=== PATIENT | female | born 1950 | race Caucasian/White ===

== ENCOUNTER 2016-12-07 14:20 | Inpatient (IN) | payer MEDICARE ==
[~2016-12-07] VITALS: Ht 165.1 cm; Wt 57.4 kg
[2016-12-08] MEDS ORDERED: FOLI1CAP7 PO (08:42)
[2016-12-08] MEDS ORDERED: TUMS500C CHEW (08:42)
[2016-12-08] MEDS ORDERED: METH2.5T PO (08:42)
[2016-12-08] MEDS ORDERED: CALCCHW9 CHEW (08:42)
[2016-12-08] MEDS ORDERED: ENAL10TA PO (08:42)
[2016-12-08] MEDS ORDERED: TIZA4CAP3 PO (08:42)
[2016-12-08] MEDS ORDERED: MULT-135 PO (08:42)
[2016-12-08] MEDS ORDERED: CALCTAB80 PO (08:42)
[2016-12-08] MEDS ORDERED: PLAQ200T PO (08:42)
[2016-12-26] MEDS ORDERED: GENTAMICIN SULFATE 80 MG/2 ML VIAL ONE (10:05)
[2016-12-26] MEDS ORDERED: ACET-703 PO (10:13)
[2016-12-26] MEDS ORDERED: FERR1TAB58 PO (10:14)
[2016-12-26] MEDS ORDERED: VANCOMYCIN HCL 1000 MG VIAL ONE (10:15)
[2016-12-26] MEDS ORDERED: LACTATED RINGER'S 1000 ML IV PRN (10:15)
[2016-12-26] MEDS ORDERED: CHLORHEXIDINE GLUCONATE 2 % 1 PACK (2 CLOTHS) TOPICAL PRN (10:15)
[2016-12-26] MEDS ORDERED: POVIDONE IODINE 5% (ANTISEPSIS KIT) 4 APPLICATIONS EACH NARE PRN (10:15)
[2016-12-26] MEDS ORDERED: METOPROLOL TARTRATE 25 MG TAB PO PRN (10:15)
[2016-12-26] MEDS ORDERED: INSULIN HUMAN REGULAR 1,000 UNITS/10 ML VIAL SQ PRN (10:15)
[2016-12-26] MEDS ORDERED: SODIUM CHLOR 0.9% 250 ML INJ 250 ML ONE (10:15)
[2016-12-26] MEDS ORDERED: SODIUM CHLORID 0.9% 500 ML IV PRN (10:15)
[2016-12-26 10:19] VITALS: BP 134/70; PULSE 72; RESP 20; TEMP 98.1; O2SAT 98
[2016-12-26] MEDS ORDERED: BUPIVACAINE LIPOSOME PF 1.3% 20 ML VIAL ONE (10:22)
[2016-12-26] MEDS ORDERED: TRANEXAMIC ACID IV SCH (10:30)
[2016-12-26] MEDS ORDERED: EXPAREL PERI-ARTICULAR INJECTION (TOTAL VOL. 60 ML) P-ARTICULR SCH ×2 (10:30)
[2016-12-26] MEDS ORDERED: SODIUM CHLORIDE 0.9% IV SCH (10:30)
[2016-12-26] MEDS ORDERED: VANCOMYCIN 1000 MG/NS 250 ML (for <70 kg) IV SCH ×2 (10:30)
[2016-12-26] MEDS ORDERED: ceFAZolin 2 GM PREMIX 50 ML IV SCH (10:30)
[2016-12-26] MEDS ORDERED: POVIDONE IODINE 7.5% SCRUB 118 ML BOTTLE TOPICAL SCH (10:30)
[2016-12-26] MEDS ORDERED: ePHEDrine/NS 25 MG/5 ML SYR IV ONE (12:00)
[2016-12-26] MEDS ORDERED: ONDANSETRON HCL 4 MG/2 ML VIAL IV PUSH ONE (12:00)
[2016-12-26] MEDS ORDERED: LACTATED RINGER'S 1000 ML INJ 1,000 ML IV ONE (12:00)
[2016-12-26] MEDS ORDERED: PHENYLEPH/NS 1000 MCG/10 ML SYR IV ONE (12:00)
[2016-12-26] MEDS ORDERED: PROPOFOL 200 MG/20 ML AMP IV ONE (12:00)
[2016-12-26] MEDS ORDERED: fentaNYL CITRATE 250 MCG/5 ML AMP ONE (12:33)
[2016-12-26] MEDS ORDERED: ACETAMINOPHEN 1000 MG/100 ML VIAL IV ONE (12:33)
[2016-12-26] MEDS ORDERED: HYDROmorphone HCL PF 2 MG/ML VIAL ONE (12:34)
[2016-12-26] MEDS ORDERED: SUGAMMADEX SODIUM 200 MG/2 ML VIAL IV PUSH ONE ×2 (12:34)
[2016-12-26] MEDS ORDERED: FAMOTIDINE 20 MG/2 ML VIAL ONE (12:35)
--- NOTE | 2016-12-26 14:43 | PD.OP ---
cc: Derrick Berger MD Operative Report Date of Surgery: December 26, 2016 Preoperative Diagnosis: Osteoarthritis right knee, severe Postoperative Diagnosis: Same Procedure: Right total knee replacement arthroplasty Anesthesia: Gen. Surgeon: Derrick Berger Inventory Specialist(s): DANIELLE Erwin Operation and Findings: EBL: 100 cc INDICATION: This patient presents with long-standing arthritis of the knee. Attachment record documents conservative measures. The patient now presents for surgical treatment. NOTE: Olga Erwin PA-C was present for the entire surgical procedure as my painter assistant. In my medical opinion her skill and care was necessary for proper management of this patient. TOURNIQUET TIME: 48 minutes COMPANY: [employer] FEMUR: Size 2.5, posterior stabilized TIBIA: Size 3.5, fixed bearing PATELLA: 35 mm POLYETHYLENE INSERT: 9 mm PROCEDURE: This patient was brought the operating room and anesthetized in the supine position. The patient was positioned supine on the table. The tourniquet was placed about the thigh, and the leg was scrubbed with alcohol followed by Hibiclens followed by ChloraPrep and draped sterilely. A timeout was done, and antibiotics were given. After exsanguination the tourniquet was inflated to 250 mmHg. An anterior incision was made and a median parapatellar arthrotomy was performed. The patella was released laterally and subluxed allowing freehand cut of the patella which was then sized. A metal cap was placed over the exposed patellar surface for protection. A airplane pilot crop dusting hole was placed in the distal femur allowing a 6 valgus cut removing 10 mm from the distal femur. Anterior posterior and chamfer cuts were made. The posterior stabilize osteotomy was made. The attention was directed to the tibia. Retractors were positioned. The external alignment guide was used allowing the lateral tibia to be used as referencing guide and cut utilizing an oscillating saw taking care to avoid any injury to the surrounding soft tissues. This was sized properly. Trial reduction showed that the insert fit nicely. The patient had range of motion extension 0 flexion 125. A medial release was not necessary. The bony surfaces prepared. On the back table 2 packets of methylmethacrylate were mixed. The components were cemented. Excess cement was removed. The tourniquet let down and hemostasis was controlled. The final plastic insert was inserted. Range of motion was the same as previously noted. A drain was brought through a separate stab incision. The arthrotomy was repaired with interrupted #1 Vicryl suture, subcutaneous tissue 2-0 Vicryl suture and skin with metallic buddy A sterile dressing was applied. Sponge counts, needle counts and instrument counts were all correct. The patient tolerated procedure well and was taken to recovery in satisfactory condition. FINDINGS: This patient had severe arthritis with periarticular osteophytes. The patient also had a moderate synovitis. A synovectomy was accomplished as a part of the procedure. The final solution was excellent. We intentionally downsize from a 3 to a 2.5 femur allowing better flexion because the patient's concern of postoperative limited flexion of a total knee on the left, done elsewhere. Derrick Berger MD December 26, 2016 14:43
[2016-12-26] MEDS ORDERED: OXYC1TAB63 PO (14:44)
[2016-12-26] MEDS ORDERED: XARE10TA PO (14:44)
[2016-12-26] MEDS ORDERED: MORPHINE SULFATE 8 MG/ML INJ IM PRN (14:45)
[2016-12-26] MEDS ORDERED: Post-op Orders (for Pharmacy) MISC XX ONE (14:45)
[2016-12-26] MEDS ORDERED: MORPHINE SULFATE 30 MG/30 ML PCA IV SCH (14:45)
[2016-12-26] MEDS ORDERED: HYDROmorphone HCL PCA 6 MG/30 ML IV SCH (14:45)
[2016-12-26] MEDS ORDERED: NALOXONE HCL 0.4 MG/ML AMP IV PRN ×2 (14:45)
[2016-12-26] MEDS ORDERED: MISCELLANEOUS NURSING INFORMATION XX PRN (14:45)
[2016-12-26] MEDS ORDERED: MISCELLANEOUS PHARMACY INFORMATION XX ONE (14:45)
[2016-12-26] MEDS ORDERED: TEMAZEPAM 15 MG CAP PO PRN (14:45)
[2016-12-26] MEDS ORDERED: oxyCODONE/ACETAMINOPHEN 5 MG/325 MG TAB PO PRN ×2 (14:45)
[2016-12-26] MEDS ORDERED: SODIUM CHLORIDE 0.9% FLUSH 5 ML FLUSH IVF PRN (14:45)
[2016-12-26] MEDS ORDERED: DO NOT ADM ANY ANTICOAGULANT DRUGS PRN (15:12)
[2016-12-26] MEDS ORDERED: MIDAZOLAM HCL 2 MG/2 ML VIAL ONE (15:12)
[2016-12-26] MEDS: LACTATED RINGER'S 1000 ML INJ 1,000 ML IV SCH (15:50)
--- NOTE | 2016-12-26 16:45 | RADRPT ---
EXAM DATE/TIME: 12/26/2016 15:30 [facility] COMPARISON: No previous studies available for comparison. INDICATIONS : Post op right knee surgery. MEDICAL HISTORY : Unobtainable. SURGICAL HISTORY : Unobtainable. ENCOUNTER: Initial ACUITY: 1 day PAIN SCORE: Non-responsive. LOCATION: Right knee. FINDINGS: 2 views right knee. Postoperative images of total knee prosthesis. Alignment within normal limits. No evidence of fracture. CONCLUSION: Grossly unremarkable postoperative knee radiographs. Kings Ortiz MD on December 26, 2016 at 16:43 Board Certified Radiologist. This report was verified electronically.
[2016-12-26] MEDS ORDERED: CPMMACHINE (18:01)
--- NOTE | 2016-12-26 18:04 | HHI.FF ---
Face to Face Verification Diagnosis: (1) Right knee pain (2) Osteoarthritis of right knee Physical Therapy Gait training, Safety evaluation Knee: Total knee, Protocol: Right, Full weight bearing Canvas Knee Splint: When in bed & 2 pillows btw thighs Right LE Weight Bearing: WB as tolerated Additional Instructions PT 4-5 days/wk. WBAT RLE, TKA protocol. Walker as needed. CPM twice daily as tolerated 0-70 w goal of 100 flexion Nursing RN Days per Week: 2 x Week(s): 1 Dressing Changes: Do not change dressing Additional Instructions Vitals assessment, dressing assessment. Do not change unless saturated I have seen patient Carmen Henderson on 12/26/16. My clinical findings support the need for the requested home health care services because: Limited ability to care for self High risk of falls I certify that my clinical findings support that this patient is homebound because: Post-op weakness Unsteady gait/balance [facility] December 26, 2016 18:04
[2016-12-26] MEDS: MAGNESIUM HYDROXIDE SUSP 30 ML CUP PO SCH (20:42)
[2016-12-26] MEDS: SODIUM CHLORIDE 0.9% FLUSH 5 ML FLUSH IVF SCH (20:42)
[2016-12-26] MEDS: PCA - TOTAL MG DILAUDID DELIVERED PER SHIFT OTHER SCH (20:42)
[2016-12-26] MEDS: SENNOSIDES 8.6 MG TAB PO SCH (20:42)
[2016-12-26 21:47] VITALS: BP 102/65; PULSE 84; RESP 18; TEMP 97.1; O2SAT 99
[2016-12-26] MEDS ORDERED: PCA - TOTAL MG MORPHINE DELIVERED PER SHIFT SCH (22:00)
[2016-12-27] VITALS (8 sets, daily range): BP systolic 87–119; BP diastolic 53–75; PULSE 66–94; RESP 17–18; TEMP 96.7–98.7; O2SAT 95–100
[2016-12-27] MEDS: PCA - TOTAL MG DILAUDID DELIVERED PER SHIFT OTHER SCH ×3 (06:00→20:52)
[2016-12-27 06:24] LABS: HEMATOCRIT 32.9 % (35.0-46.0); REVIEW FLAG FINAL
[2016-12-27] MEDS: LACTATED RINGER'S 1000 ML INJ 1,000 ML IV SCH (06:25)
[2016-12-27] MEDS: MAGNESIUM HYDROXIDE SUSP 30 ML CUP PO SCH ×2 (08:43→20:52)
[2016-12-27] MEDS: ENALAPRIL MALEATE 10 MG TAB PO SCH (08:43)
[2016-12-27] MEDS: SODIUM CHLORIDE 0.9% FLUSH 5 ML FLUSH IVF SCH ×2 (09:00→20:52)
--- NOTE | 2016-12-27 10:23 | HHI.DCPOC ---
Discharge Care Plan Diagnosis: (1) Right knee pain (2) Osteoarthritis of right knee Your Health Problems Are: Incision/Drains Swelling Goals to Promote Your Health * To prevent worsening of your condition and complications * To maintain your health at the optimal level Directions to Meet Your Goals Take your medications as prescribed Follow your dietary instruction Follow activity as directed Keep your appointments as scheduled Take your immunizations and boosters as scheduled If your symptoms worsen call your PCP, if no PCP go to Urgent Care Center or Emergency Room Smoking is Dangerous to Your Health. Avoid second hand smoke Call the 24-hour hour crisis hotline for domestic abuse at [facility] December 27, 2016 10:23
--- NOTE | 2016-12-27 10:31 | HHI.DS ---
Discharge Summary Admission Date December 26, 2016 at 09:37 Discharge Date: December 28, 2016 Admitting Diagnosis see below Diagnosis: (1) Right knee pain Diagnosis: Principal (2) Osteoarthritis of right knee Diagnosis: Principal Procedures Right total knee arthroplasty Brief History This is a 66 year old female patient with a history of right knee pain. She sought out medical treatment after her function began to decline. Imaging studies were performed showing moderate to severe osteoarthritis of her right knee. Conservative measures were pursued including injections and medications. She continued to decline. Surgical treatment was recommended in the form of right total knee arthroplasty. She presents for the above. CBC/BMP: 12/27/16 0545 Significant Findings Laboratory Tests Test 12/27/16 05:45 Hemoglobin 11.0 GM/DL (11.6-15.3) Hematocrit 32.9 % (35.0-46.0) Hospital Course Surgical treatment was performed on the day of admission without complication. She recovered well in PACU and was transferred to the orthopaedic floor. Pain was controlled with IV and oral medications. DVT prophylaxis was initiated postop day #1. She was compliant with physical therapy and also any precautions. After 2 days she was found be stable despite mild persisting nausea and discharged home with home healthcare. She was instructed to continue with physical therapy, pursue a high-fiber diet, and continue her anticoagulant for 15 days. Pt Condition on Discharge: Stable Discharge Disposition: Disch w/ Home Health Serv Discharge Instructions Diet Instructions: As Tolerated, No Restrictions, High Fiber Diet Activities You Can Perform: Weight Bearing as [place] Additional Activity Instruc.: TKA protocol New Medications: CPM-Continuous Passive Motion Machine (CPM-Continuous Passive Motion Machine) 1 Ea Device 1 EA .ROUTE DIRECTED #1 Ref 0 EA Walker with Front Wheels (Walker with Front Wheels) 1 Mis Mis 1 EA .ROUTE DIRECTED #1 Ref 0 EA Oxycodone-Acetaminophen (Oxycodone-Acetaminophen) 5-325 mg Tab 1 TAB PO Q4H PRN PAIN LESS THAN 5 ON SCALE #50 TAB Rivaroxaban (Xarelto) 10 Mg Tab 10 MG PO Q24H Prevent Blood Clot #15 TAB Continued Medications: Acetaminophen (Tylenol Extra Strength) 500 Mg Tab 1000 MG PO Q6H PRN pain Ref 0 TAB Calcium Carbonate (Antacid) (Tums) 500 Mg Chew 500 MG CHEW PRN HEARTBURN Ref 0 TAB Calcium Carbonate-Cholecalciferol (Calcium 1000 + D) 1,000-800 Mg-Unit Tab 2 TAB PO TAB Enalapril (Enalapril) 10 Mg Tab 10 MG PO DAILY #30 Ref 0 TAB Ferrous Sulfate (Iron) 50 Mg Tab 65 MG PO DAILY Nutritional Supplement Ref 0 TAB Folic Acid (Folic Acid) 800 Mcg Cap 800 MCG PO DAILY CAP Hydroxychloroquine (Plaquenil) 200 Mg Tab 200 MG PO DAILY Take with food #30 Ref 0 TAB Methotrexate (Methotrexate) 2.5 Mg Tab 20 MG PO Q7D Ref 0 TAB Multiple Vitamin (Multi Vitamin) 1 Tab Tab 1 TAB PO DAILY TAB Tizanidine (Tizanidine) 4 Mg Cap 4 MG PO TID PRN MUSCLE SPASM Ref 0 CAP [facility] December 27, 2016 10:31
[2016-12-27] MEDS ORDERED: ONDANSETRON HCL 4 MG/2 ML VIAL IV PUSH PRN (11:00)
[2016-12-27] MEDS ORDERED: WALKER WHEELS/F1 MIS (13:04)
--- NOTE | 2016-12-27 13:04 | PD.ORT.PN ---
Subjective Subjective Remarks Moderate right knee pain but well controlled. She is actually pleased with her right knee pain. She is more concerned about nausea as she has vomited several times, always when she tries to get up and out of bed. No other concerns. Questions about surgery. No new chest pain or SOB. Objective Vitals Vital Signs Date Time Temp Pulse Resp B/P Pulse Ox O2 Delivery O2 Flow Rate FiO2 12/27/16 11:16 95 Nasal Cannula 2.00 12/27/16 07:55 97.6 81 18 119/65 100 12/27/16 05:24 2.00 12/27/16 03:56 96.7 66 18 96/53 97 12/27/16 00:15 97.1 68 17 96/64 99 12/26/16 21:47 97.1 84 18 102/65 99 12/26/16 19:40 Nasal Cannula 3.00 12/26/16 17:15 98.0 79 16 122/56 100 Nasal Cannula 2 12/26/16 16:30 78 16 110/50 98 12/26/16 16:15 84 16 120/58 99 12/26/16 16:00 70 16 120/57 99 12/26/16 15:50 12 12/26/16 15:45 78 12 134/61 99 12/26/16 15:30 81 16 134/60 99 12/26/16 15:15 81 13 129/60 98 Nasal Cannula 2 12/26/16 15:08 97.6 85 15 122/68 99 Nasal Cannula 2 I/O 12/26/16 12/26/16 12/26/16 12/27/16 12/27/16 12/27/16 07:00 15:00 23:00 07:00 15:00 23:00 Intake Total 2490 ml 720 ml Output Total 995 ml 1745 ml Balance 1495 ml -1025 ml Intake Oral 360 ml 720 ml IV Total 430 ml Other 1700 ml Output Urine Total 325 ml 1525 ml Drainage Total 270 ml 220 ml Estimated Blood Loss 100 ml Other 300 ml # Bowel Movements 0 0 Result Diagram: 12/27/16 0545 Imaging Last 24 hours Impressions Knee X-Ray 12/26/16 1437 Signed Impressions: Service Date/Time: Monday, December 26, 2016 15:30 - CONCLUSION: Grossly unremarkable postoperative knee radiographs. Kings Ortiz MD Objective Remarks Sitting up in bed, NAD VSS RLE Dressing c/d/i, drain in place, mild swelling, no erythema +motor at, +sens, +nvi calf supple, neg homans Assessment & Plan Ortho Post Op Day #: 1 Problem List: (1) Right knee pain (2) Osteoarthritis of right knee Assessment and Plan s/p R TKA, pod#1 [employer] dc'd last night. Zofran for nausea. Will also write phenergan if needed. Xarelto 10mg qd for 15 minutes. PT - WBAT RLE. TKA protocol. CPM bid, 0-70 w goal of 100. D/C right knee drain. Ok to redress drain site. Hold dressing changes for incision. Do not change unless saturated. F2F written. DME written. [facility] December 27, 2016 13:04
[2016-12-27] MEDS ORDERED: PROMETHAZINE HCL 25 MG TAB PO PRN (14:00)
[2016-12-27] MEDS: RIVAROXABAN 10 MG TAB PO SCH (14:37)
[2016-12-27] MEDS: SENNOSIDES 8.6 MG TAB PO SCH (20:52)
[2016-12-28] MEDS: LACTATED RINGER'S 1000 ML INJ 1,000 ML IV SCH ×2 (00:22→13:54)
[2016-12-28] MEDS: PCA - TOTAL MG DILAUDID DELIVERED PER SHIFT OTHER SCH (05:07)
[2016-12-28 08:00] VITALS: BP 106/69; PULSE 94; RESP 18; TEMP 97.6; O2SAT 97
[2016-12-28] MEDS: SODIUM CHLORIDE 0.9% FLUSH 5 ML FLUSH IVF SCH (09:00)
[2016-12-28] MEDS: MAGNESIUM HYDROXIDE SUSP 30 ML CUP PO SCH (09:00)
[2016-12-28] MEDS ORDERED: ACETAMINOPHEN/HYDROcodone 325 MG/7.5 MG TAB PO PRN ×2 (09:15)
--- NOTE | 2016-12-28 09:17 | PD.ORT.PN ---
Subjective Subjective Remarks She continues to have knee pain but states the pain is well controlled. She is still struggling with nausea. She is urinating well. Passing gas. Denies CP or SOB. Ready for discharge but concerned about nausea and dizziness. She states she has had vertigo in the past but 'this isn't vertigo'. Objective Vitals Vital Signs Date Time Temp Pulse Resp B/P Pulse Ox O2 Delivery O2 Flow Rate FiO2 12/28/16 08:00 97.6 94 18 106/69 97 12/27/16 23:58 97.8 88 17 115/67 97 12/27/16 19:02 98.7 88 17 116/69 96 12/27/16 16:00 97.4 85 18 102/75 100 12/27/16 12:00 98.7 94 18 87/61 100 12/27/16 11:16 95 Nasal Cannula 2.00 I/O 12/27/16 12/27/16 12/27/16 12/28/16 12/28/16 12/28/16 07:00 15:00 23:00 07:00 15:00 23:00 Intake Total 720 ml 720 ml 907 ml 853 ml Output Total 1745 ml Balance -1025 ml 720 ml 907 ml 853 ml Intake Oral 720 ml 720 ml 480 ml 480 ml IV Total 427 ml 373 ml Output Urine Total 1525 ml Drainage Total 220 ml # Voids 2 3 3 # Bowel Movements 0 1 1 0 Result Diagram: 12/27/16 0545 Imaging Last 24 hours Impressions Knee X-Ray 12/26/16 1437 Signed Impressions: Service Date/Time: Monday, December 26, 2016 15:30 - CONCLUSION: Grossly unremarkable postoperative knee radiographs. Kings Ortiz MD Procedures Right total knee arthroplasty Objective Remarks Sitting up in bed, NAD VSS RLE Dressing c/d/i, drain removed and site redressed, mild swelling, no erythema, very little ecchymosis, +motor at, +sens, +nvi calf supple, neg homans Assessment & Plan Ortho Post Op Day #: 2 Problem List: (1) Right knee pain (2) Osteoarthritis of right knee Assessment and Plan s/p R TKA, pod#2 Likely her nausea is stemming from her medications. She states she didn't get nausea when she took [place]. D/C oxycodone and change to [place] 7.5mg q4h. Phenergan 25mg written. Will write a small Rx outpatient as needed. Xarelto 10mg qd for 15 days postop. PT - WBAT RLE. TKA protocol. CPM bid, 0-70 w goal of 100. Hold dressing changes for incision. Do not change unless saturated. Ok to change drain site if needed. Ok to d/c home w [facility] this afternoon if stable. F/U in 2 weeks as scheduled. F2F written. DME written. [facility] December 28, 2016 09:17
[2016-12-28] MEDS ORDERED: PROM25TA5 PO (09:19)
[2016-12-28] MEDS: ENALAPRIL MALEATE 10 MG TAB PO SCH (10:28)
[2016-12-28 10:37] VITALS: O2SAT 96
[2016-12-28 12:00] VITALS: BP 108/62; PULSE 130; RESP 18; TEMP 98.6; O2SAT 100
[2016-12-28 13:34] VITALS: BP 112/51
[2016-12-28] MEDS: RIVAROXABAN 10 MG TAB PO SCH (13:53)
[2016-12-28] MEDS ORDERED: HYDR-3580 PO (15:46)
[2016-12-28 16:00] VITALS: BP 101/73; PULSE 114; RESP 18; TEMP 99.5; O2SAT 100
== END 2016-12-28 18:58 | disposition home health service (06) | DRG 470 ==
LOC: HSDI 12-26 09:37 → EDUNIT# 12-26 13:00 → N06A 12-26 17:31
PROVIDERS: ADMIT Orthopaedic Surgery Orthopaedic Surgery of the Spine; ATTEND Orthopaedic Surgery Orthopaedic Surgery of the Spine
PROC: 0SRC0J9 Replacement of Right Knee Joint with Synthetic Substitute, Cemented, Open Approach (ICD-10-PCS; principal; 2016-12-26 12:37)
DX: M17.11 Unilateral primary osteoarthritis, right knee (principal); M25.761 Osteophyte, right knee; M65.861 Other synovitis and tenosynovitis, right lower leg; R11.0 Nausea; R42 Dizziness and giddiness; Z88.2 Allergy status to sulfonamides; Z88.5 Allergy status to narcotic agent; Z96.652 Presence of left artificial knee joint
CPT/HCPCS: 36415; 73560; 85014; 85018; 86850; 86900; 86901; 86920; 94150; C1776; C9290; J0131; J0690; J1170; J1580; J2250; J2370; J2405; J3010; J3370; J7050; J7120; L1830; Q0169

== ENCOUNTER → 2016-12-08 | Outpatient (CLI) | payer MEDICARE ==
[~2016-12-08] MED LIST: ACET-703 PO; CALCCHW9 CHEW; CALCTAB80 PO; CPMMACHINE; ENAL10TA PO; FERR1TAB58 PO; FOLI1CAP7 PO; HYDR-3580 PO; METH2.5T PO; MULT-135 PO; OXYC1TAB63 PO; PLAQ200T PO; PROM25TA5 PO; TIZA4CAP3 PO; TUMS500C CHEW; WALKER WHEELS/F1 MIS; XARE10TA PO
[2016-12-08 08:41] LABS: AUTOMATED NEUTROPHIL # 3.7 TH/MM3 (1.8-7.7); BASOPHIL # 0.1 TH/MM3 (0-0.2); BASOPHIL % 1.1 % (0.0-2.0); EOSINOPHIL % 0.8 % (0.0-4.0); HEMATOCRIT 40.3 % (35.0-46.0); HEMO FLAGS DIFF FINAL; LYMPH % 25.6 % (9.0-44.0); LYMPHOCYTE # 1.5 TH/MM3 (1.0-4.8); MEAN CELL VOLUME 95.6 FL (80.0-100.0); MEAN CORPUSCULAR HEMOGLOBIN 33.2 PG (27.0-34.0); MEAN CORPUSCULAR HGB CONC 34.7 % (32.0-36.0); MONO % 8.2 % (0.0-8.0); NEUT % 64.3 % (16.0-70.0); PLATELET COUNT 256 TH/MM3 (150-450); RED BLOOD COUNT 4.21 MIL/MM3 (4.00-5.30); RED CELL DISTRIBUTION WIDTH 12.8 % (11.6-17.2); WHITE BLOOD COUNT 5.8 TH/MM3 (4.0-11.0)
[2016-12-08 08:47] LABS: BLOOD, URINE NEG (NEG); GLUCOSE,URINE NEG (NEG); KETONE, URINE NEG (NEG); MUCUS URINE MANY /lpf (OCC); NITRITE,URINE NEG (NEG); PH, URINE 6.5 (5.0-8.5); SQUAMOUS EPITHELIAL CELL URINE 1 /hpf (0-5); URINE COLOR YELLOW (YELLW/STRAW)
[2016-12-08 08:50] LABS: APTT (PATIENT) 26.5 SEC (24.3-30.1); PROTHROMBIN TIME - PATIENT 10.7 SEC (9.8-11.6)
[2016-12-08 08:53] LABS: COMMENT (UR) CATH-CULT NOT IND; CULTURE IF INDICATED CATH CULTURE NOT IND
[2016-12-08 09:04] LABS: WESTERGREN SEDIMENTATION RATE 8 mm/hr (0-30)
[2016-12-08 09:16] LABS: ANION GAP 6 MEQ/L (5-15); BICARBONATE 27.6 MEQ/L (21.0-32.0); BLOOD UREA NITROGEN 17 MG/DL (7-18); CHLORIDE 106 MEQ/L (98-107); GLOMERULAR FILTRATION RATE 72 ML/MIN (>89); GLUCOSE,FASTING 85 MG/DL (74-99); SODIUM (NA) 140 MEQ/L (136-145)
[2016-12-08 09:19] LABS: ALKALINE PHOSPHATASE 60 U/L (45-117); ALT (GPT) 30 U/L (10-53); AST (GOT) 22 U/L (15-37); TOTAL BILIRUBIN ADULT 0.6 MG/DL (0.2-1.0)
--- NOTE | 2016-12-08 20:36 | EKG ---
Date Performed: 12/08/2016 Time Performed: 08:29:58 PTAGE: 66 years EKG: Sinus rhythm WITH SINUS ARRHYTHMIA WITH SHORT FL INTERVAL BORDERLINE ECG NO PREVIOUS TRACING DOCTOR: Dariel White Interpretating Date/Time 12/08/2016 20:35:17
== END ==
LOC: CPRE 07:51
PROVIDERS: ATTEND Orthopaedic Surgery Orthopaedic Surgery of the Spine
DX: Z01.812 Encounter for preprocedural laboratory examination (principal); Z01.810 Encounter for preprocedural cardiovascular examination; M17.11 Unilateral primary osteoarthritis, right knee; R94.31 Abnormal electrocardiogram [ECG] [EKG]; Z51.81 Encounter for therapeutic drug level monitoring; Z79.01 Long term (current) use of anticoagulants
CPT/HCPCS: 36415; 80053; 81001; 85025; 85610; 85652; 85730; 93005